=== PATIENT | male | born 1945 | race Caucasian/White ===

== ENCOUNTER 2017-02-26 22:19 | Emergency (ER) | payer MEDICARE, OTHER ==
[~2017-02-26] VITALS: Ht 162.6 cm; Wt 76.5 kg
[2017-02-26 22:24] VITALS: Ht 162.6 cm; Wt 76.5 kg
--- NOTE | 2017-02-26 23:12 | ERD ---
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 Stated that he was slicing a food when he accidentally punctured his left palm. Denies headache, dizziness, blurry vision, neck pain, shoulder pain, chest pain , back pain, abdominal pain, nausea, vomiting, constipation, diarrhea, loss of bowel bladder control, changes in bowel or bladder habits, numbness or tingling sensation, difficulty walking, fever, chills. Allergies: Unable to state the name of the medication he is allergic to. Past medical history of diabetes, left eye blindness, right eye glaucoma. Surgical history of right eye cataract surgery. Medication: Unable to obtain the names of the medications at this time. Social: Retired. Denies smoking, use of alcoholic beverages, use of illegal drugs. ROS All systems reviewed and are negative except as per history of present illness. Allergies Allergies: Coded Allergies: No Known Allergy (Unverified , 02/26/17) PMhx/Soc History of Surgery: Yes (CATARACT) Anesthesia Reaction: No Hx Neurological Disorder: No Hx Respiratory Disorders: No Hx Cardiac Disorders: No Hx Psychiatric Problems: No Hx Miscellaneous Medical Probl: Yes (GLAUCOMA RIGHT EYE, BLIND LEFT EYE) Hx Alcohol Use: No Hx Substance Use: No Hx Tobacco Use: No Smoking Status: Never smoker Physical Exam Vitals Vital Signs Date Time Temp Pulse Resp B/P Pulse Ox O2 Delivery O2 Flow Rate FiO2 02/26/17 22:24 98.6 80 18 146/69 100 Physical Exam Const: [] Head: Atraumatic Eyes: Normal Conjunctiva ENT: Normal External Ears, Nose and Mouth. Neck: Full range of motion..~ No meningismus. Resp: Clear to auscultation bilaterally Cardio: Regular rate and rhythm, no murmurs Abd: Soft, non tender, non distended. Normal bowel sounds Skin: No petechiae or rashes Back: No midline or flank tenderness Ext: No cyanosis, or edema Neur: Awake and alert Psych: Normal Mood and Affect Results 24 hrs Current Medications Medications (Trade) Dose Ordered Sig/Sheri Route PRN Reason Start Time Stop Time Status Last Admin Dose Admin Diphtheria/ Tetanus/Acell Pertussis (Adacel) 0.5 ml ONCE ONCE IM* 11/18/17 23:30 02/26/17 23:31 DC 02/26/17 23:35 Ibuprofen (Motrin) 800 mg ONCE ONCE PO 02/26/17 23:30 02/26/17 23:31 DC 02/26/17 23:38 Procedures/MDM 71-year-old male who presents emergency department for left hand laceration/ punctured wound 30 minutes prior to arrival here in the emergency department. Stated that he was slicing a food when he accidentally punctured his left palm. Denies headache, dizziness, blurry vision, neck pain, shoulder pain, chest pain , back pain, abdominal pain, nausea, vomiting, constipation, diarrhea, loss of bowel bladder control, changes in bowel or bladder habits, numbness or tingling sensation, difficulty walking, fever, chills. Allergies: Unable to state the name of the medication he is allergic to. Past medical history of diabetes, left eye blindness, right eye glaucoma. Surgical history of right eye cataract surgery. Medication: Unable to obtain the names of the medications at this time. Social: Retired. Denies smoking, use of alcoholic beverages, use of illegal drugs. Physical exam: Left palm, at the base of metacarpal area laceration/punctured wound measuring approximately 1.5 cm in length. No active bleeding. Has good and full function of the left hand/fingers full extension and flexion with a score of 5/5. No neurovascular deficits. Right upper extremities unremarkable. Disease process was explained to the patient. He verbalized understanding and agreed with the diagnostic test, treatment, procedure, plan of care, follow-up care. X-ray of the left hand: No acute fracture or dislocation. Treatment: Adacel. Wound cleansing. Procedure: Laceration repair done by Citlalli Staley NP. Reevaluation: Denies headache, dizziness, blurred vision, neck pain, shoulder pain, chest pain, hand pain, extremity pain, numbness or tingling sensation. No active bleeding. Good and full function of the left hand and right hand. No evidence of tendon injury. No neurovascular deficits. No neurological deficits. Differential diagnosis: Punctured wound versus laceration versus tendon injury Final diagnosis: Punctured wound/laceration Prescription: Tylenol. Keflex. Follow-up with PCP in the next 24-48 hours. Come back here in the emergency department in 2 days for a wound check. Come back here in the emergency department in 7-10 days for suture removal. Come back here in the emergency department for any new symptoms or any worsening of symptoms. All questions and concerns were answered. Patient verbalized understanding and agreed with the plan of care. Hemodynamically stable on discharge. Departure Diagnosis: Primary Impression: Laceration Additional Impression: Hand laceration Condition: Stable Additional Instructions: Follow-up with PCP in the next 24-48 hours. Come back here in the emergency department in 2 days for a wound check. Come back here in the emergency department in 7-10 days for suture removal. Come back here in the emergency department for any new symptoms or any worsening of symptoms. All questions and concerns were answered. Patient verbalized understanding and agreed with the plan of care. LOREE MARMOLEJO Feb 26, 2017 23:12
[2017-02-26] MEDS ORDERED: IBUPROFEN 800 MG TAB PO ONE (23:30)
[2017-02-26] MEDS ORDERED: DIPHTH/TET/ACEL PERTUSS (ADULT) 0.5 ML VIAL IM* ONE (23:30)
--- NOTE | 2017-02-27 01:06 | RADRPT ---
PROCEDURE: XR hand. CLINICAL INDICATION: Trauma TECHNIQUE: AP, lateral and oblique views of the left hand was obtained. COMPARISON: There are no similar studies submitted for comparison. FINDINGS: There is normal bone mineralization. There is no acute fracture or dislocation. No osseous erosions are identified. The joint spaces are within normal limits. Vascular calcifications are noted. IMPRESSION: No acute fracture or dislocation. RPTAT: HIKT .Junior Pelayo MD, MD Date Time Electronically viewed and signed by .Junior Pelayo MD, MD on 02/27/2017 01:06 .T/
[2017-02-27] MEDS ORDERED: ACET500C5 PO (01:14)
[2017-02-27] MEDS ORDERED: CEPH500C PO (01:14)
--- NOTE | 2017-02-27 01:15 | EN ---
Date/Time of Note Date/Time of Note DATE: 02/27/17 TIME: 01:13 (MARIANA ARAUJO NP) ER Progress Note Procedure note: laceration repair Verbal consent was obtained for the laceration repair. The wound was copiously irrigated. Local anesthesia was provided using 1% lidocaine. After appropriate anesthesia, the area was explored under a bloodless field. Full range of motion of the joint above and below the injury was noted. No foreign body, deep structure or tendon involvement was noted. Patient was able to make okay sign. There appear to be significant hematoma on his thenar eminence. Closure was achieved with 3 interrupted sutures using 4-0 Ethilon. Good cosmetic and hemostatic results were obtained with the closure. The wound was then cleaned and a dressing was applied. 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 (GRZEGORZ PARRISH DO) MARIANA ARAUJO NP Feb 27, 2017 01:15 GRZEGORZ PARRISH DO Feb 28, 2017 09:38
== END 2017-02-27 01:21 | disposition home or self-care (01) ==
LOC: FTE 22:19
DX: S61.412A Laceration without foreign body of left hand, initial encounter (principal); E11.9 Type 2 diabetes mellitus without complications; W26.8XXA Contact with other sharp object(s), not elsewhere classified, initial encounter; Y92.9 Unspecified place or not applicable; Z23 Encounter for immunization
CPT/HCPCS: 90471; 90715

== ENCOUNTER 2017-03-01 10:55 | Emergency (ER) | payer MEDICARE, OTHER ==
[~2017-03-01] VITALS: Wt 65.9 kg
[~2017-03-01 10:55] MED LIST: ACET500C5 PO; CEPH500C PO
--- NOTE | 2017-03-01 11:55 | ERD ---
ER Documentation Chief Complaint Chief Complaint wound recheck HPI 71y/o male patient with no significant medical history, presents to the emergency department for recheck and evaluation of left hand laceration sutured 2 days ago. The patient has been feeling better, denies chills, no edema. Good compliance with medications, no side effects. ROS All systems reviewed and are negative except as per history of present illness. Medications Home Meds Active Scripts Acetaminophen* (Tylophen*) 500 Mg Capsule, 1 CAP PO Q6H Y for PAIN AND OR ELEVATED TEMP, #20 CAP Prov:LOREE MARMOLEJO F 02/27/17 Cephalexin* (Cephalexin*) 500 Mg Capsule, 500 MG PO BID for prophylaxis for 5 Days, #10 CAP Prov:LUISILABANLOREE F 02/27/17 Allergies Allergies: Coded Allergies: No Known Allergy (Unverified , 03/01/17) PMhx/Soc History of Surgery: Yes (CATARACT) Anesthesia Reaction: No Hx Neurological Disorder: No Hx Respiratory Disorders: No Hx Cardiac Disorders: No Hx Psychiatric Problems: No Hx Miscellaneous Medical Probl: Yes (GLAUCOMA RIGHT EYE, BLIND LEFT EYE) Hx Alcohol Use: No Hx Substance Use: No Hx Tobacco Use: No Smoking Status: Never smoker Physical Exam Vitals Vital Signs Date Time Temp Pulse Resp B/P Pulse Ox O2 Delivery O2 Flow Rate FiO2 03/01/17 10:56 97.1 79 20 103/61 99 Physical Exam Patient is in no acute distress, vital signs stable. Alert and fully oriented. EYES: PERRLA, EOMI, Sclera and conjunctiva appear normal. EARS: Canals clear, tympanic membranes WNL THROAT: Normal oropharynx. NECK: Supple, No lymphadenopathy. Full ROM without pain or tenderness. HEART: RRR, no rubs, murmurs, clicks or gallops. LUNGS: Clear to auscultation. ABDOMEN: Soft, non-tender without masses or hepatosplenomegaly. EXTREMITIES: Left hand 2 cm laceration repair, wound clean,, dry. No signs of infection. Neurovascular exam intact Procedures/MDM 71-year-old male, presents to the emergency department for 48 hours and recheck. No evidence of infection, intact Physical examination and clinical presentation consistent most likely with laceration of the left hand without complications. During the ED course the patient had a wound care and a dressing with antibiotic ointment. Clinical impression discussed with patient who agrees with management. The patient is stable to be treated outpatient and will be discharged home with recommendations for wound care and follow-up in 5 days for stitches removal If symptoms persist, worsen or new symptoms develop, then patient should return to the ED immediately. Instructions explained and given to patient in Hungarian with acknowledgment and demonstrated understanding. Disclaimer: Inadvertent spelling and grammatical errors are likely due to EHR/ dictation software use and do not reflect on the overall quality of patient care. Also, please note that the electronic time recorded on this note does not necessarily reflect the actual time of the patient encounter. Departure Diagnosis: Primary Impression: Hand laceration Condition: Stable Additional Instructions: Muchas ashlyn por [facility] para valdes servicio. Esperamos que en valdes visita a la hayley de emergencia valdes problema medico haya sido solucionado y que se sienta mucho mejor. Para estar seguros que valdes mejoria sigue en proceso, le pedimos el favor de hacer efra cory de seguimiento medico con valdes doctor primario en los proximos 2-4 valera. Lleve con usted estos documentos y las medicinas recetadas. Si matteo sintomas empeoran y no puede gerardo a valdes doctor, por favor regrese a hayley de emergencia. En reno que usted no tenga un mdico de atencin primaria: Llame al mdico o clnica comunitaria de referencia que aparece abajo joya las horas de consultorio para hacer efra cory para que le vean. CLINICAS: [facility] [phone] [facility] [phone] [facility] [phone] [facility] [phone] [facility] [phone] [facility] [phone] [place] Mar 01, 2017 11:55
== END 2017-03-01 12:01 | disposition home or self-care (01) ==
LOC: FTE 10:55
DX: S61.412D Laceration without foreign body of left hand, subsequent encounter (principal); X58.XXXD Exposure to other specified factors, subsequent encounter
CPT/HCPCS: 99281